=== PATIENT | male | born 1950 | race Caucasian/White ===

== ENCOUNTER 2018-03-22 08:59 | Outpatient (CLI) | payer MEDICARE ==
[2018-03-22 09:36] LABS: Estimated GFR-MDRD - POC Greater than 90
[2018-03-22] MEDS ORDERED: ISOVUE-370 76%-LOCM 1 ML ONE (15:00)
== END 2018-03-22 09:00 | disposition home or self-care (01) ==
LOC: BICCT 08:59
PROVIDERS: ATTEND Internal Medicine Hematology & Oncology
DX: C43.4 Malignant melanoma of scalp and neck (principal); R59.0 Localized enlarged lymph nodes; J90 Pleural effusion, not elsewhere classified; R60.0 Localized edema; I87.8 Other specified disorders of veins; I51.7 Cardiomegaly; R91.8 Other nonspecific abnormal finding of lung field; Z90.2 Acquired absence of lung [part of]
CPT/HCPCS: 71260; 82565